=== PATIENT | female | born 1980 | race African-American/Black ===

== ENCOUNTER 2017-03-01 21:53 | Emergency (ER) | payer OTHER ==
[~2017-03-01] VITALS: Ht 172.7 cm; Wt 62.0 kg
[~2017-03-01 21:53] MED LIST: ACET-2178
[2017-03-01] MEDS ORDERED: KETOROLAC 30MG/ML VIAL IV STA (22:48)
[2017-03-01] MEDS ORDERED: ASPIRIN 81MG TABLET PO ONE (23:00)
[2017-03-01 23:35] LABS: BASOPHILS % 0.6 % (0.0-2.0); EOSINOPHILS % 2.7 % (0.0-5.0); HEMATOCRIT. 37.9 % (36.0-48.0); HEMOGLOBIN. 12.6 g/dL (12.0-16.0); LYMPHOCYTES % 44.5 % (20.0-50.0); MEAN CORPUSCULAR HEMOGLOBIN 30.9 pg (28.0-32.0); MEAN CORPUSCULAR VOLUME 93.3 fL (81.0-99.0); MEAN PLATELET VOLUME 8.4 fl (7.4-10.4); MONOCYTES % 9.5 % (2.0-8.0); NEUTROPHILS % 42.7 % (40.0-76.0); PLATELET 237 x1000/uL (130-400); RED BLOOD CELL COUNT 4.07 mill/uL (4.2-5.4); RED CELL DISTRIBUTION WIDTH 14.3 % (11.6-14.6)
[2017-03-01 23:43] LABS: CARBON DIOXIDE 26 mEq/L (21-32); CHLORIDE 111 mEq/L (98-107); ETHANOL BLOOD < 10 mg/dL; TROPONIN I < 0.02 ng/mL (0.00-0.04)
[2017-03-02 00:06] LABS: *AMPHETAMINES SCREEN URINE NEGATIVE (NEGATIVE); *BARBITURATES SCREEN URINE NEGATIVE (NEGATIVE); *BENZODIAZEPINES SCREEN URINE NEGATIVE (NEGATIVE); *COCAINE SCREEN URINE NEGATIVE (NEGATIVE); METHADONE URINE SCREEN NEGATIVE (NEGATIVE); OPIATES URINE SCREEN NEGATIVE (NEGATIVE); PHENCYCLIDINE URINE SCREEN NEGATIVE (NEGATIVE)
[2017-03-02 00:18] LABS: CANNABINOID URINE SCREEN PRESUMTIVE POSITIVE (NEGATIVE)
[2017-03-02] MEDS ORDERED: FAMOTIDINE 20MG/2ML VIAL IV STA (00:54)
[2017-03-02] MEDS ORDERED: MAGNESIUM/ALUMINUM HYDROXIDE/SIMETHICONE 30ML UDC PO STA (00:54)
[2017-03-02] MEDS ORDERED: ACETAMINOPHEN 325MG TABLET PO ONE (03:00)
[2017-03-02 04:18] VITALS: BP 149/81
== END 2017-03-02 04:22 | disposition home or self-care (01) ==
LOC: ER 22:10
DX: I10 Essential (primary) hypertension (principal); R07.89 Other chest pain; R51 Headache; I25.2 Old myocardial infarction; Z91.14 Patient's other noncompliance with medication regimen; Z98.890 Other specified postprocedural states
CPT/HCPCS: 36415; 70450; 71010; 80053; 80305; 81025; 83690; 83880; 84484; 85025; 85379; 93005; 96374; 96375; 99285; G0482; J1885; J3490

== ENCOUNTER 2017-04-15 20:06 | Emergency (ER) | payer OTHER ==
[~2017-04-15] VITALS: Ht 172.7 cm; Wt 63.0 kg
[2017-04-15] MEDS ORDERED: KETOROLAC 60MG/2ML VIAL IM ONE (22:30)
[2017-04-15 23:07] VITALS: BP 153/121
== END 2017-04-15 23:49 | disposition home or self-care (01) ==
LOC: ER 20:18
DX: R51 Headache (principal); I10 Essential (primary) hypertension; R07.89 Other chest pain; R06.02 Shortness of breath; F17.210 Nicotine dependence, cigarettes, uncomplicated; F12.90 Cannabis use, unspecified, uncomplicated
CPT/HCPCS: 81025; 93005; 96372; 99283; J1885; Z7610

== ENCOUNTER 2017-04-28 20:15 | Emergency (ER) | payer SELFPAY ==
[~2017-04-28] VITALS: Ht 172.7 cm; Wt 63.0 kg
[2017-04-28] MEDS ORDERED: MORPHINE SULFATE 4 MG/ML CPJ (NOT FOR IM USE) IV STA (22:25)
[2017-04-28] MEDS ORDERED: ONDANSETRON HCL 4MG/2ML VIAL IV STA (22:25)
[2017-04-28] MEDS ORDERED: LISINOPRIL 20MG TABLET PO ONE (22:30)
[2017-04-28] MEDS ORDERED: ASPIRIN 81MG TABLET PO ONE (22:30)
[2017-04-28 23:02] LABS: BASOPHILS % 0.7 % (0.0-2.0); EOSINOPHILS % 2.6 % (0.0-5.0); HEMATOCRIT. 34.8 % (36.0-48.0); HEMOGLOBIN. 11.4 g/dL (12.0-16.0); LYMPHOCYTES % 46.9 % (20.0-50.0); MEAN CORPUSCULAR HEMOGLOBIN 30.6 pg (28.0-32.0); MEAN CORPUSCULAR VOLUME 93.6 fL (81.0-99.0); MEAN PLATELET VOLUME 8.2 fl (7.4-10.4); MONOCYTES % 8.5 % (2.0-8.0); NEUTROPHILS % 41.3 % (40.0-76.0); PLATELET 190 x1000/uL (130-400); RED BLOOD CELL COUNT 3.71 mill/uL (4.2-5.4); RED CELL DISTRIBUTION WIDTH 13.6 % (11.6-14.6)
[2017-04-28 23:10] LABS: D-DIMER < 0.19 mg/L FEU (<0.50); HCG SCREEN NEGATIVE; INR 1.1; PROTHROMBIN TIME 10.9 sec (9.4-11.6)
[2017-04-28 23:15] LABS: CARBON DIOXIDE 25 mEq/L (21-32); CHLORIDE 110 mEq/L (98-107); ETHANOL BLOOD < 10 mg/dL
[2017-04-28 23:18] LABS: TROPONIN I < 0.02 ng/mL (0.00-0.04)
[2017-04-29 01:03] VITALS: BP 140/80
== END 2017-04-29 01:05 | disposition home or self-care (01) ==
LOC: ER 20:15
DX: R07.89 Other chest pain (principal); I16.0 Hypertensive urgency; R00.1 Bradycardia, unspecified; Z86.73 Personal history of transient ischemic attack (TIA), and cerebral infarction without residual deficits
CPT/HCPCS: 36415; 71010; 80053; 83690; 83880; 84484; 84703; 85025; 85379; 85610; 93005; 96374; 96375; 99285; G0482; J2270; J2405; Z7610

== ENCOUNTER 2017-06-15 17:22 | Emergency (ER) | payer OTHER ==
[~2017-06-15] VITALS: Ht 172.7 cm; Wt 59.0 kg
[2017-06-16] MEDS ORDERED: IBUPROFEN 600MG TABLET PO ONE (00:30)
[2017-06-16 03:08] VITALS: BP 125/88
== END 2017-06-16 03:09 | disposition home or self-care (01) ==
LOC: ER 19:07
DX: M94.0 Chondrocostal junction syndrome [Tietze] (principal); I10 Essential (primary) hypertension; Z86.73 Personal history of transient ischemic attack (TIA), and cerebral infarction without residual deficits
CPT/HCPCS: 71045; 81025; 93005; 99284; Z7610

== ENCOUNTER 2018-09-29 01:06 | Emergency (ER) | payer OTHER ==
[~2018-09-29] VITALS: Ht 172.7 cm; Wt 63.0 kg
[2018-09-29 04:09] LABS: BASOPHILS % 0.8 % (0.0-2.0); EOSINOPHILS % 1.7 % (0.0-5.0); HEMATOCRIT. 31.5 % (36.0-48.0); HEMOGLOBIN. 10.4 g/dL (12.0-16.0); LYMPHOCYTES % 39.7 % (20.0-50.0); MEAN CORPUSCULAR HEMOGLOBIN 30.8 pg (28.0-32.0); MEAN CORPUSCULAR VOLUME 93.6 fL (81.0-99.0); MEAN PLATELET VOLUME 7.9 fl (7.4-10.4); MONOCYTES % 9.3 % (2.0-8.0); NEUTROPHILS % 48.5 % (40.0-76.0); PLATELET 204 x1000/uL (130-400); RED BLOOD CELL COUNT 3.36 mill/uL (4.2-5.4); RED CELL DISTRIBUTION WIDTH 13.7 % (11.6-14.6)
[2018-09-29 04:15] LABS: CHLORIDE 111 mEq/L (98-107)
[2018-09-29 04:37] LABS: B-HCG QUANTITATIVE 8273 mIU/mL (<3)
[2018-09-29 05:12] LABS: CLARITY URINE CLEAR (CLEAR); COLOR URINE YELLOW (YELLOW); KETONES URINE TRACE (NEGATIVE); LEUKOCYTE ESTERASE URINE TRACE (NEGATIVE); NITRITE URINE NEGATIVE (NEGATIVE); OCCULT BLOOD URINE NEGATIVE (NEGATIVE); PROTEIN URINE NEGATIVE (NEGATIVE)
[2018-09-29 06:07] VITALS: BP 118/74
== END 2018-09-29 06:10 | disposition home or self-care (01) ==
LOC: ER 01:06
DX: O20.0 Threatened abortion (principal); O99.411 Diseases of the circulatory system complicating pregnancy, first trimester; I10 Essential (primary) hypertension; I25.2 Old myocardial infarction; O26.891 Other specified pregnancy related conditions, first trimester; Z86.73 Personal history of transient ischemic attack (TIA), and cerebral infarction without residual deficits; Z98.890 Other specified postprocedural states; Z79.899 Other long term (current) drug therapy; Z3A.01 Less than 8 weeks gestation of pregnancy
CPT/HCPCS: 36415; 76801; 76817; 80053; 81003; 81025; 84702; 85025; 86850; 86900; 86901; 99284; Z7610

== ENCOUNTER 2019-03-10 20:57 | Inpatient (IN) | payer SELFPAY ==
[~2019-03-10] VITALS: Ht 172.7 cm; Wt 61.8 kg
[~2019-03-10 20:57] MED LIST changes: -ACET-2178; +TOPUD
[2019-03-11] MEDS ORDERED: ASPIRIN 81MG TABLET PO ONE (01:30)
[2019-03-11] MEDS: NITROGLYCERIN 0.4MG TABLET SL SL PRN ×2 (01:39→01:50)
[2019-03-11 02:00] LABS: CHLORIDE 108 mEq/L (98-107)
[2019-03-11 02:02] LABS: HCG SCREEN NEGATIVE
[2019-03-11 02:09] LABS: BASOPHILS % 0.6 % (0.0-2.0); EOSINOPHILS % 1.7 % (0.0-5.0); HEMATOCRIT. 39.7 % (36.0-48.0); HEMOGLOBIN. 12.9 g/dL (12.0-16.0); LYMPHOCYTES % 37.4 % (20.0-50.0); MEAN CORPUSCULAR VOLUME 92.1 fL (81.0-99.0); NEUTROPHILS % 53.3 % (40.0-76.0); PLATELET 228 x1000/uL (130-400); RED BLOOD CELL COUNT 4.31 mill/uL (4.2-5.4); RED CELL DISTRIBUTION WIDTH 14.8 % (11.6-14.6)
[2019-03-11 02:14] LABS: D-DIMER 0.28 mg/L FEU (<0.50); PARTIAL THROMBOPLASTIN TIME 30.2 sec (23.4-31.0); PROTHROMBIN TIME 10.2 sec (9.6-11.0)
[2019-03-11] MEDS ORDERED: DOCUSATE SODIUM 100MG CAPSULE PO PRN (06:00)
[2019-03-11] MEDS ORDERED: DIPHENHYDRAMINE 50MG/ML VIAL IV PRN (06:00)
[2019-03-11] MEDS ORDERED: MORPHINE SULFATE 2 MG/ML CPJ (NOT FOR IM USE) IV PRN (06:00)
[2019-03-11] MEDS ORDERED: NA PHOS,M-B/NA PHOS,DI-BA ENEMA 118ML PR PRN (06:00)
[2019-03-11] MEDS ORDERED: ONDANSETRON HCL 4MG/2ML INJ IV PRN (06:00)
[2019-03-11] MEDS ORDERED: CLONIDINE 0.1MG TABLET PO PRN (06:00)
[2019-03-11] MEDS ORDERED: GUAIFENESIN 200MG/10ML SUGAR FREE UDC PO PRN (06:00)
[2019-03-11] MEDS ORDERED: MAGNESIUM/ALUMINUM HYDROXIDE/SIMETHICONE 30ML UDC PO PRN (06:00)
[2019-03-11] MEDS ORDERED: IPRATROPIUM/ALBUTEROL 0.5-3(2.5)MG/3ML NEB HHN PRN (06:00)
[2019-03-11] MEDS ORDERED: ACETAMINOPHEN 325MG TABLET PO PRN (06:00)
[2019-03-11] MEDS ORDERED: LORAZEPAM 2MG/ML CPJ IV PRN (06:00)
[2019-03-11] MEDS ORDERED: HYDRALAZINE 20MG/ML VIAL IV PRN (06:00)
[2019-03-11 06:30] LABS: CREATINE KINASE 53 IU/L (26-192)
[2019-03-11 06:31] LABS: CREATINE KINASE MB FRACTION < 1.0 ng/mL (0.5-3.6)
[2019-03-11 08:30] VITALS: BP 119/81
[2019-03-11 08:35] VITALS: BP 119/81
[2019-03-11] MEDS: ASPIRIN 81MG EC TABLET PO SCH (09:26)
[2019-03-11] MEDS: ENOXAPARIN 40MG/0.4ML SYR SUBCUT SCH (09:28)
[2019-03-11] MEDS ORDERED: LISI-604 MT (10:02)
[2019-03-11] MEDS: HYDROCODONE/ACETAMINOPHEN 10/325MG TABLET PO PRN (11:52)
[2019-03-11 12:00] VITALS: BP 105/57
[2019-03-11] MEDS: SODIUM CHLORIDE 0.9% INJ 3ML FLUSH IVF SCH ×2 (14:00→21:27)
[2019-03-11 16:00] VITALS: BP 107/62
[2019-03-11 17:54] LABS: CREATINE KINASE 49 IU/L (26-192)
[2019-03-11 17:55] LABS: CREATINE KINASE MB FRACTION < 1.0 ng/mL (0.5-3.6)
[2019-03-11 19:57] VITALS: BP 119/78
[2019-03-11] MEDS ORDERED: PNEUMOCOCCAL 23-VAL P-SAC VAC 0.5 ML IM ONE (20:00)
[2019-03-11] MEDS ORDERED: INFLUENZA VIRUS VACCINE(AFLURIA) 0.5ML SYR IM ONE (20:00)
[2019-03-11 22:46] LABS: *AMPHETAMINES SCREEN URINE NEGATIVE (NEGATIVE); *BARBITURATES SCREEN URINE NEGATIVE (NEGATIVE); *BENZODIAZEPINES SCREEN URINE NEGATIVE (NEGATIVE); *COCAINE SCREEN URINE NEGATIVE (NEGATIVE); METHADONE URINE SCREEN NEGATIVE (NEGATIVE)
[2019-03-11 22:47] LABS: CANNABINOID URINE SCREEN NEGATIVE (NEGATIVE); PHENCYCLIDINE URINE SCREEN NEGATIVE (NEGATIVE)
[2019-03-11 22:51] LABS: OPIATES URINE SCREEN PRESUMTIVE POSITIVE (NEGATIVE)
[2019-03-12 00:38] VITALS: BP 119/74
[2019-03-12 04:00] VITALS: BP 112/76
[2019-03-12] MEDS: SODIUM CHLORIDE 0.9% INJ 3ML FLUSH IVF SCH (05:20)
[2019-03-12 07:41] LABS: BASOPHILS % 0.5 % (0.0-2.0); EOSINOPHILS % 1.4 % (0.0-5.0); HEMATOCRIT. 34.2 % (36.0-48.0); HEMOGLOBIN. 11.3 g/dL (12.0-16.0); LYMPHOCYTES % 32.5 % (20.0-50.0); MEAN CORPUSCULAR HEMOGLOBIN 30.3 pg (28.0-32.0); MEAN CORPUSCULAR VOLUME 91.4 fL (81.0-99.0); MEAN PLATELET VOLUME 9.7 fl (7.4-10.4); MONOCYTES % 6.9 % (2.0-8.0); NEUTROPHILS % 58.7 % (40.0-76.0); PLATELET 214 x1000/uL (130-400); RED BLOOD CELL COUNT 3.74 mill/uL (4.2-5.4); RED CELL DISTRIBUTION WIDTH 14.3 % (11.6-14.6)
[2019-03-12 08:18] LABS: CHLORIDE 109 mEq/L (98-107)
[2019-03-12 08:31] LABS: HDL CHOLESTEROL 69 mg/dL (40-59)
[2019-03-12 08:32] LABS: LDL CHOLESTEROL 70 mg/dL (5-100); T4 FREE 0.99 ng/dL (0.76-1.46)
[2019-03-12 08:36] VITALS: BP 107/69
[2019-03-12] MEDS: ASPIRIN 81MG EC TABLET PO SCH (09:05)
[2019-03-12] MEDS: ENOXAPARIN 40MG/0.4ML SYR SUBCUT SCH (09:05)
[2019-03-12 11:55] VITALS: BP 123/77
[2019-03-12] MEDS: HYDROCODONE/ACETAMINOPHEN 10/325MG TABLET PO PRN (11:55)
[2019-03-12 15:23] VITALS: BP 120/83
== END 2019-03-12 16:50 | disposition home or self-care (01) | DRG 198 ==
LOC: ER 20:57 → 6WST 03-11 04:47 → ENRESERV 03-11 07:10
PROVIDERS: ADMIT Internal Medicine; ATTEND Internal Medicine
DX: R07.89 Other chest pain (principal); I25.2 Old myocardial infarction; F41.9 Anxiety disorder, unspecified; Z91.19 Patient's noncompliance with other medical treatment and regimen; I10 Essential (primary) hypertension; Z98.891 History of uterine scar from previous surgery
CPT/HCPCS: 36415; 71045; 80061; 80305; 82550; 82553; 83036; 83880; 84439; 84443; 84484; 84703; 85379; 90686; 90732; 93005; 93306; 99285; J1650

== ENCOUNTER 2019-03-31 00:46 | Emergency (ER) | payer SELFPAY ==
[~2019-03-31] VITALS: Ht 172.7 cm; Wt 63.0 kg
[2019-03-31 03:32] LABS: CLARITY URINE CLEAR (CLEAR); COLOR URINE YELLOW (YELLOW); KETONES URINE TRACE (NEGATIVE); LEUKOCYTE ESTERASE URINE TRACE (NEGATIVE); NITRITE URINE POSITIVE (NEGATIVE); OCCULT BLOOD URINE NEGATIVE (NEGATIVE); PROTEIN URINE NEGATIVE (NEGATIVE)
[2019-03-31] MEDS ORDERED: KETOROLAC 60MG/2ML VIAL IM STA (03:36)
[2019-03-31] MEDS ORDERED: CEFTRIAXONE SODIUM 1 G/VIAL IM ONE (05:00)
[2019-03-31] MEDS ORDERED: LIDOCAINE HCL/PF 1% 10 MG/ML 5ML VIAL IJ ONE (05:00)
[2019-03-31 05:32] VITALS: BP 120/80
== END 2019-03-31 05:40 | disposition home or self-care (01) ==
LOC: ER 00:46
DX: N39.0 Urinary tract infection, site not specified (principal)
CPT/HCPCS: 81003; 81025; 96372; 99283; J0696; J1885; J3490; Z7610

== ENCOUNTER 2020-05-03 13:51 | Emergency (ER) | payer MEDICAID ==
[~2020-05-03] VITALS: Ht 172.7 cm; Wt 63.6 kg
[2020-05-03 14:32] VITALS: BP 130/86
== END 2020-05-03 16:52 | disposition home or self-care (01) ==
LOC: ER 13:51
DX: U07.1 COVID-19 (principal); G93.3 Postviral and related fatigue syndromes; I10 Essential (primary) hypertension; Z98.890 Other specified postprocedural states; Z87.440 Personal history of urinary (tract) infections; Z71.89 Other specified counseling
CPT/HCPCS: 99281; 99283

== ENCOUNTER 2020-05-07 01:29 | Emergency (ER) | payer MEDICAID ==
[~2020-05-07] VITALS: Ht 172.7 cm; Wt 63.0 kg
[2020-05-07] MEDS ORDERED: MAGNESIUM/ALUMINUM HYDROXIDE/SIMETHICONE 30ML UDC PO STA (02:21)
[2020-05-07] MEDS ORDERED: SODIUM CHLORIDE 0.9% 1,000 ML IV ONE (02:30)
[2020-05-07] MEDS ORDERED: FAMOTIDINE 20MG/2ML VIAL IV NR (03:00)
[2020-05-07 04:55] LABS: BASOPHILS % 0.6 % (0.0-2.0); EOSINOPHILS % 1.3 % (0.0-5.0); HEMATOCRIT. 36.2 % (36.0-48.0); HEMOGLOBIN. 12.1 g/dL (12.0-16.0); MEAN CORPUSCULAR HEMOGLOBIN 30.6 pg (28.0-32.0); MEAN CORPUSCULAR VOLUME 91.8 fL (81.0-99.0); MEAN PLATELET VOLUME 8.8 fl (7.4-10.4); MONOCYTES % 7.3 % (2.0-8.0); NEUTROPHILS % 62.8 % (40.0-76.0); PLATELET 276 x1000/uL (130-400); RED BLOOD CELL COUNT 3.94 mill/uL (4.2-5.4); RED CELL DISTRIBUTION WIDTH 14.5 % (11.6-14.6)
[2020-05-07 05:04] LABS: CHLORIDE 110 mEq/L (98-107)
[2020-05-07 05:09] LABS: PROTHROMBIN TIME 10.2 sec (9.6-11.0)
[2020-05-07 05:18] LABS: HCG SCREEN NEGATIVE
[2020-05-07 05:44] VITALS: BP 131/80
== END 2020-05-07 05:52 | disposition home or self-care (01) ==
LOC: ER 01:29
DX: R10.13 Epigastric pain (principal); I10 Essential (primary) hypertension; R07.89 Other chest pain; Z98.890 Other specified postprocedural states
CPT/HCPCS: 36415; 71045; 80053; 83690; 84703; 85025; 85610; 93005; 96361; 96374; 99285; J3490; J7030

== ENCOUNTER 2020-10-19 19:42 | Emergency (ER) | payer MEDICAID ==
[~2020-10-19] VITALS: Ht 172.7 cm; Wt 66.0 kg
[2020-10-19 21:19] LABS: CLARITY URINE CLEAR (CLEAR); COLOR URINE YELLOW (YELLOW); KETONES URINE NEGATIVE (NEGATIVE); LEUKOCYTE ESTERASE URINE NEGATIVE (NEGATIVE); NITRITE URINE NEGATIVE (NEGATIVE); OCCULT BLOOD URINE NEGATIVE (NEGATIVE); PH URINE 6.5 (4.5-8.0); PROTEIN URINE NEGATIVE (NEGATIVE)
[2020-10-19 23:06] LABS: BASOPHILS % 0.5 % (0.0-2.0); EOSINOPHILS % 1.3 % (0.0-5.0); HEMOGLOBIN. 12.5 g/dL (12.0-16.0); LYMPHOCYTES % 36.5 % (20.0-50.0); MEAN CORPUSCULAR HEMOGLOBIN 30.6 pg (28.0-32.0); MEAN CORPUSCULAR VOLUME 93.2 fL (81.0-99.0); MEAN PLATELET VOLUME 8.3 fl (7.4-10.4); MONOCYTES % 8.1 % (2.0-8.0); NEUTROPHILS % 53.6 % (40.0-76.0); PLATELET 245 x1000/uL (130-400); RED BLOOD CELL COUNT 4.07 mill/uL (4.2-5.4); RED CELL DISTRIBUTION WIDTH 14.5 % (11.6-14.6)
[2020-10-19 23:11] LABS: CHLORIDE 110 mEq/L (98-107)
[2020-10-19 23:16] LABS: PROTHROMBIN TIME 10.5 sec (9.6-11.0)
[2020-10-19] MEDS ORDERED: KETOROLAC 30MG/ML VIAL IV STA (23:22)
[2020-10-19] MEDS ORDERED: SODIUM CHLORIDE 0.9% 1,000 ML IV ONE (23:30)
[2020-10-20] MEDS ORDERED: T3 PO (00:53)
[2020-10-20 01:40] VITALS: BP 138/90
== END 2020-10-20 01:46 | disposition home or self-care (01) ==
LOC: ER 19:42
DX: N83.209 Unspecified ovarian cyst, unspecified side (principal); I25.2 Old myocardial infarction; I10 Essential (primary) hypertension; Z98.890 Other specified postprocedural states
CPT/HCPCS: 36415; 76830; 76856; 80053; 81003; 81025; 83690; 85025; 85610; 96361; 96374; 99284; J1885; J7030

== ENCOUNTER 2020-11-29 18:13 | Emergency (ER) | payer MEDICAID ==
[~2020-11-29] VITALS: Ht 172.7 cm; Wt 65.0 kg
[~2020-11-29 18:13] MED LIST changes: +T3 PO; -TOPUD
[2020-11-29] MEDS ORDERED: CARSR60 PO (19:08)
[2020-11-29] MEDS ORDERED: ACETAMINOPHEN 325MG TABLET PO ONE (20:30)
[2020-11-29] MEDS ORDERED: KETOROLAC 60MG/2ML VIAL IM ONE (20:30)
[2020-11-29 21:23] VITALS: BP 140/80
[2020-11-29] MEDS ORDERED: ACET-2708 MT (21:26)
[2020-11-29] MEDS ORDERED: IBUP-2029 MT (21:26)
== END 2020-11-29 21:43 | disposition home or self-care (01) ==
LOC: ER 18:13
DX: S13.4XXA Sprain of ligaments of cervical spine, initial encounter (principal); S80.02XA Contusion of left knee, initial encounter; I10 Essential (primary) hypertension; V49.49XA Driver injured in collision with other motor vehicles in traffic accident, initial encounter; Y93.89 Activity, other specified; Y92.488 Other paved roadways as the place of occurrence of the external cause
CPT/HCPCS: 71045; 73560; 81025; 93005; 96372; 99284; J1885

== ENCOUNTER 2020-12-22 11:36 | Emergency (ER) | payer MEDICAID ==
[~2020-12-22] VITALS: Ht 172.7 cm; Wt 66.0 kg
[~2020-12-22 11:36] MED LIST changes: +ACET-2708 MT; +CARSR60 PO; +IBUP-2029 MT
[2020-12-22] MEDS ORDERED: ASPIRIN 81MG TABLET PO ONE (12:45)
[2020-12-22 13:20] LABS: BASOPHILS % 1.1 % (0.0-2.0); EOSINOPHILS % 1.4 % (0.0-5.0); HEMATOCRIT. 36.6 % (36.0-48.0); HEMOGLOBIN. 12.3 g/dL (12.0-16.0); LYMPHOCYTES % 25.4 % (20.0-50.0); MEAN CORPUSCULAR VOLUME 91.9 fL (81.0-99.0); MEAN PLATELET VOLUME 8.8 fl (7.4-10.4); MONOCYTES % 7.5 % (2.0-8.0); NEUTROPHILS % 64.6 % (40.0-76.0); PLATELET 234 x1000/uL (130-400); RED BLOOD CELL COUNT 3.98 mill/uL (4.2-5.4); RED CELL DISTRIBUTION WIDTH 13.9 % (11.6-14.6)
[2020-12-22 13:27] LABS: CHLORIDE 108 mEq/L (98-107)
[2020-12-22] MEDS ORDERED: LORAZEPAM 0.5MG TABLET PO NR (14:30)
[2020-12-22] MEDS ORDERED: ACETAMINOPHEN 325MG TABLET PO NR (14:30)
[2020-12-22 16:00] VITALS: BP 140/100
== END 2020-12-22 17:18 | disposition home or self-care (01) ==
LOC: ER 12:51
DX: R07.89 Other chest pain (principal); I10 Essential (primary) hypertension; I25.2 Old myocardial infarction
CPT/HCPCS: 36415; 71045; 80053; 83880; 84484; 85025; 93005; 93970; 99285; Z7610

== ENCOUNTER 2021-01-06 21:31 | Emergency (ER) | payer MEDICAID ==
[~2021-01-06] VITALS: Ht 172.7 cm; Wt 66.0 kg
[2021-01-06 21:50] VITALS: BP 173/109
[2021-01-07 02:19] LABS: CLARITY URINE CLEAR (CLEAR); COLOR URINE YELLOW (YELLOW); KETONES URINE TRACE (NEGATIVE); LEUKOCYTE ESTERASE URINE NEGATIVE (NEGATIVE); NITRITE URINE NEGATIVE (NEGATIVE); OCCULT BLOOD URINE NEGATIVE (NEGATIVE); PROTEIN URINE NEGATIVE (NEGATIVE); SPECIFIC GRAVITY URINE 1.019 (1.005-1.030)
[2021-01-07] MEDS ORDERED: IBUP-2029 MT (02:28)
== END 2021-01-07 02:45 | disposition home or self-care (01) ==
LOC: ER 21:31
DX: M54.2 Cervicalgia (principal); R35.0 Frequency of micturition; F41.9 Anxiety disorder, unspecified; I10 Essential (primary) hypertension; I25.2 Old myocardial infarction; Z98.890 Other specified postprocedural states; Z79.899 Other long term (current) drug therapy
CPT/HCPCS: 72040; 81003; 99284

== ENCOUNTER 2021-06-26 21:54 | Emergency (ER) | payer MEDICAID, OTHER ==
[~2021-06-26] VITALS: Ht 172.7 cm; Wt 66.0 kg
[2021-06-26] MEDS ORDERED: ASPIRIN 325MG EC TABLET PO ONE (22:45)
[2021-06-26 23:33] LABS: BASOPHILS % 0.9 % (0.0-2.0); EOSINOPHILS % 1.9 % (0.0-5.0); HEMATOCRIT. 35.3 % (36.0-48.0); HEMOGLOBIN. 11.3 g/dL (12.0-16.0); MEAN CORPUSCULAR HEMOGLOBIN 28.8 pg (28.0-32.0); MEAN CORPUSCULAR VOLUME 90.1 fL (81.0-99.0); MEAN PLATELET VOLUME 8.4 fl (7.4-10.4); MONOCYTES % 10.7 % (2.0-8.0); NEUTROPHILS % 50.5 % (40.0-76.0); PLATELET 202 x1000/uL (130-400); RED BLOOD CELL COUNT 3.92 mill/uL (4.2-5.4); RED CELL DISTRIBUTION WIDTH 14.4 % (11.6-14.6)
[2021-06-26 23:57] LABS: CHLORIDE 109 mEq/L (98-107)
[2021-06-27 03:02] VITALS: BP 113/68
== END 2021-06-27 04:00 | disposition home or self-care (01) ==
LOC: ER 21:54
DX: J06.9 Acute upper respiratory infection, unspecified (principal); Z20.822 Contact with and (suspected) exposure to COVID-19; D64.9 Anemia, unspecified; I25.2 Old myocardial infarction
CPT/HCPCS: 36415; 71045; 80053; 83880; 84484; 85025; 87426; 93005; 99285

== ENCOUNTER 2022-05-11 12:49 | Emergency (ER) | payer MEDICAID, OTHER ==
[~2022-05-11] VITALS: Ht 172.7 cm; Wt 71.0 kg
[2022-05-11 12:59] VITALS: BP 172/98
[2022-05-11] MEDS ORDERED: ACETAMINOPHEN 325MG TABLET PO STA (13:46)
[2022-05-11] MEDS ORDERED: LOSARTAN POTASSIUM 100 MG TABLET PO ONE (14:00)
[2022-05-11 14:04] LABS: BASOPHILS % 0.6 % (0.0-2.0); EOSINOPHILS % 0.9 % (0.0-5.0); HEMATOCRIT. 35.3 % (36.0-48.0); HEMOGLOBIN. 11.7 g/dL (12.0-16.0); LYMPHOCYTES % 16.5 % (20.0-50.0); MEAN CORPUSCULAR VOLUME 93.3 fL (81.0-99.0); MEAN PLATELET VOLUME 8.1 fl (7.4-10.4); MONOCYTES % 8.1 % (2.0-8.0); NEUTROPHILS % 73.9 % (40.0-76.0); PLATELET 214 x1000/uL (130-400); RED BLOOD CELL COUNT 3.78 mill/uL (4.2-5.4); RED CELL DISTRIBUTION WIDTH 14.2 % (11.6-14.6)
[2022-05-11] MEDS ORDERED: LOSARTAN POTASSIUM 100 MG TABLET PO SCH (14:15)
[2022-05-11 14:17] LABS: CHLORIDE 109 mEq/L (98-107)
[2022-05-11] MEDS ORDERED: TOPUD MT (16:08)
== END 2022-05-11 17:56 | disposition home or self-care (01) ==
LOC: ER 12:49
DX: J10.1 Influenza due to other identified influenza virus with other respiratory manifestations (principal); I10 Essential (primary) hypertension; Z20.822 Contact with and (suspected) exposure to COVID-19; I25.2 Old myocardial infarction
CPT/HCPCS: 36415; 71045; 80053; 83880; 84484; 85025; 87426; 87804; 93005; 99285

== ENCOUNTER 2022-10-08 01:34 | Emergency (ER) | payer MEDICAID ==
[~2022-10-08] VITALS: Ht 172.7 cm; Wt 67.5 kg
[~2022-10-08 01:34] MED LIST changes: +TOPUD MT
[2022-10-08 02:04] VITALS: BP 163/112
[2022-10-08] MEDS ORDERED: DEXAMETHASONE 10 MG/ML VIAL IV ONE (04:30)
[2022-10-08] MEDS ORDERED: TOPUD PO (04:30)
[2022-10-08] MEDS ORDERED: [UNRECOGNIZED DRUG - CODE] PO (04:30)
== END 2022-10-08 05:24 | disposition home or self-care (01) ==
LOC: ER 01:34
DX: J02.9 Acute pharyngitis, unspecified (principal); I10 Essential (primary) hypertension; Z98.890 Other specified postprocedural states
CPT/HCPCS: 81025; 87070; 87430; 96374; 99283; J1100; Z7610

== ENCOUNTER 2023-08-06 18:29 | Emergency (ER) | payer OTHER, MEDICAID ==
[~2023-08-06] VITALS: Ht 165.1 cm; Wt 65.0 kg
[~2023-08-06 18:29] MED LIST changes: +TOPUD PO; +[UNRECOGNIZED DRUG - CODE] PO
[2023-08-06 18:31] VITALS: PULSE 103
[2023-08-06 18:35] VITALS: BP 130/93; RESP 20; TEMP 98.5; O2SAT 100
[2023-08-06] MEDS ORDERED: NAPR-681 PO (19:41)
[2023-08-06] MEDS ORDERED: BO1 TP (19:41)
== END 2023-08-06 19:57 | disposition home or self-care (01) ==
LOC: ER 18:29
DX: S00.83XA Contusion of other part of head, initial encounter (principal); S20.219A Contusion of unspecified front wall of thorax, initial encounter; I10 Essential (primary) hypertension; Z98.890 Other specified postprocedural states; Y04.0XXA Assault by unarmed brawl or fight, initial encounter; Y93.89 Activity, other specified; Y92.89 Other specified places as the place of occurrence of the external cause; Y99.8 Other external cause status
CPT/HCPCS: 99282

== ENCOUNTER 2024-08-06 21:17 | Emergency (ER) | payer MEDICAID ==
[~2024-08-06] VITALS: Ht 172.7 cm; Wt 69.0 kg
[~2024-08-06 21:17] MED LIST changes: +BO1 TP; +NAPR-681 PO
[2024-08-06 21:21] VITALS: O2SAT 99
[2024-08-06] MEDS: HYDRALAZINE 20MG/ML VIAL IV ONE (22:11)
[2024-08-06 22:32] LABS: BASOPHILS % 0.2 % (0.0-2.0); EOSINOPHILS % 1.2 % (0.0-5.0); HEMATOCRIT. 37.9 % (36.0-48.0); HEMOGLOBIN. 12.3 g/dL (12.0-16.0); LYMPHOCYTES % 24.1 % (20.0-50.0); MEAN CORPUSCULAR HEMOGLOBIN 29.9 pg (28.0-32.0); MEAN CORPUSCULAR HGB CONC 32.5 g/dL (31.0-37.0); MEAN CORPUSCULAR VOLUME 91.9 fL (81.0-99.0); MEAN PLATELET VOLUME 8.7 fl (7.4-10.4); MONOCYTES % 8.6 % (2.0-8.0); NEUTROPHILS % 65.9 % (40.0-76.0); PLATELET 239 x1000/uL (130-400); RED BLOOD CELL COUNT 4.12 mill/uL (4.2-5.4); RED CELL DISTRIBUTION WIDTH 14.3 % (11.6-14.6); WHITE BLOOD COUNT 4.4 x1000/uL (4.5-11.0)
[2024-08-06 22:41] LABS: CARBON DIOXIDE 27 mEq/L (21-32); CHLORIDE 106 mEq/L (98-107); POTASSIUM 3.7 mEq/L (3.5-5.1); SODIUM 140 mEq/L (136-145)
[2024-08-06 22:42] LABS: CALCIUM 9.4 mg/dL (8.7-10.4)
[2024-08-06 22:46] LABS: CREATININE 0.9 mg/dL (0.6-1.0)
[2024-08-06 22:47] LABS: GLUCOSE 73 mg/dL (70-105); UREA NITROGEN BLOOD 12 mg/dL (9-23)
[2024-08-06 22:49] LABS: ALANINE AMINOTRANSFERASE 9 IU/L (10-49); ALBUMIN 4.5 g/dL (3.2-4.8); ASPARTATE AMINOTRANSFERASE 18 IU/L (<34); BILIRUBIN DIRECT 0.2 mg/dL (<=3.0); BILIRUBIN TOTAL 0.9 mg/dL (0.1-1.0); PROTEIN TOTAL 8.3 g/dL (6.0-8.3); TROPONIN I HIGH SENSITIVITY 6 ng/L (3.0-34)
[2024-08-06 22:57] LABS: HCG SCREEN NEGATIVE
[2024-08-06] MEDS: KETOROLAC 15MG/ML VIAL IV NR (23:23)
[2024-08-07 01:19] VITALS: BP 124/70; PULSE 75; RESP 16; TEMP 36.7; O2SAT 98
[2024-08-07] MEDS ORDERED: AMLO10TA80 MT (01:26)
[2024-08-07] MEDS ORDERED: PROT20 MT (01:26)
== END 2024-08-07 01:55 | disposition home or self-care (01) ==
LOC: ER 21:25
DX: R07.89 Other chest pain (principal); R10.13 Epigastric pain; I10 Essential (primary) hypertension; I25.2 Old myocardial infarction; Z98.890 Other specified postprocedural states; Z79.899 Other long term (current) drug therapy
CPT/HCPCS: 80076; 80048; 84703; 83690; 85025; 84484; 36415; 71045; 76705; 93005; 96374; 96375; 99285; J0360; J1885; Z7610

== ENCOUNTER 2024-09-02 19:56 | Emergency (ER) | payer MEDICAID ==
[~2024-09-02] VITALS: Ht 167.6 cm; Wt 68.0 kg
[~2024-09-02 19:56] MED LIST changes: +AMLO10TA80 MT; +PROT20 MT
[2024-09-02 20:04] VITALS: BP 145/94; TEMP 36.8; O2SAT 100
[2024-09-02 20:07] VITALS: PULSE 90; RESP 16; O2SAT 100
[2024-09-02 20:39] LABS: BASOPHILS % 0.4 % (0.0-2.0); HEMOGLOBIN. 11.5 g/dL (12.0-16.0); LYMPHOCYTES % 30.7 % (20.0-50.0); MEAN CORPUSCULAR HEMOGLOBIN 29.7 pg (28.0-32.0); MEAN CORPUSCULAR HGB CONC 31.9 g/dL (31.0-37.0); MEAN CORPUSCULAR VOLUME 93.1 fL (81.0-99.0); MEAN PLATELET VOLUME 8.7 fl (7.4-10.4); MONOCYTES % 10.1 % (2.0-8.0); NEUTROPHILS % 56.8 % (40.0-76.0); PLATELET 234 x1000/uL (130-400); RED BLOOD CELL COUNT 3.87 mill/uL (4.2-5.4); RED CELL DISTRIBUTION WIDTH 14.1 % (11.6-14.6); WHITE BLOOD COUNT 4.3 x1000/uL (4.5-11.0)
[2024-09-02 20:42] LABS: CHLORIDE 109 mEq/L (98-107); POTASSIUM 4.4 mEq/L (3.5-5.1); SODIUM 142 mEq/L (136-145)
[2024-09-02 20:43] LABS: CALCIUM 9.5 mg/dL (8.7-10.4); CARBON DIOXIDE 27 mEq/L (21-32)
[2024-09-02 20:48] LABS: CREATININE 0.9 mg/dL (0.6-1.0); GLUCOSE 78 mg/dL (70-105); UREA NITROGEN BLOOD 15 mg/dL (9-23)
[2024-09-02 20:49] LABS: TROPONIN I HIGH SENSITIVITY 10 ng/L (3.0-34)
[2024-09-02 23:26] LABS: TROPONIN I HIGH SENSITIVITY 9 ng/L (3.0-34)
== END 2024-09-03 00:04 | disposition home or self-care (01) ==
LOC: ER 19:56
DX: R07.89 Other chest pain (principal); F12.10 Cannabis abuse, uncomplicated; I10 Essential (primary) hypertension; Z79.899 Other long term (current) drug therapy; Z98.890 Other specified postprocedural states
CPT/HCPCS: 36415; 71045; 80048; 84484; 85025; 85379; 93005; 99285

== ENCOUNTER 2024-11-18 21:45 | Emergency (ER) | payer MEDICAID ==
[~2024-11-18] VITALS: Ht 172.7 cm; Wt 67.0 kg
[2024-11-18 21:50] VITALS: O2SAT 99
[2024-11-18] MEDS: ACETAMINOPHEN 500MG TABLET PO ONE (22:51)
[2024-11-18] MEDS: CYCLOBENZAPRINE 10MG TABLET PO ONE (22:51)
[2024-11-18] MEDS: DEXAMETHASONE 4MG/ML 1ML VIAL IV ONE (23:27)
[2024-11-18] MEDS ORDERED: AMOX-494 MT (23:51)
[2024-11-19 00:38] VITALS: BP 130/90; PULSE 64; RESP 18; TEMP 36.8; O2SAT 100
== END 2024-11-19 00:45 | disposition home or self-care (01) ==
LOC: ER 21:45
DX: J02.0 Streptococcal pharyngitis (principal); I10 Essential (primary) hypertension; Z79.899 Other long term (current) drug therapy; Z55.6 Problems related to health literacy
CPT/HCPCS: 81025; 87430; 96374; 99283; J1100; Z7610

== ENCOUNTER 2025-02-23 19:12 | Emergency (ER) | payer MEDICAID ==
[~2025-02-23] VITALS: Ht 172.7 cm; Wt 66.5 kg
[~2025-02-23 19:12] MED LIST changes: +AMOX-494 MT; +IBUP-1455 MT; -IBUP-2029 MT
[2025-02-23 19:14] VITALS: O2SAT 100
[2025-02-23 20:27] LABS: BASOPHILS % 0.5 % (0.0-2.0); EOSINOPHILS % 1.6 % (0.0-5.0); HEMATOCRIT. 36.2 % (36.0-48.0); HEMOGLOBIN. 11.5 g/dL (12.0-16.0); LYMPHOCYTES % 30.7 % (20.0-50.0); MEAN PLATELET VOLUME 8.7 fl (7.4-10.4); MONOCYTES % 8.3 % (2.0-8.0); NEUTROPHILS % 58.9 % (40.0-76.0); PLATELET 208 x1000/uL (130-400); RED BLOOD CELL COUNT 3.81 mill/uL (4.2-5.4); RED CELL DISTRIBUTION WIDTH 13.8 % (11.6-14.6)
[2025-02-23 20:40] LABS: CREATININE 0.8 mg/dL (0.6-1.0); TROPONIN I HIGH SENSITIVITY < 4 ng/L (3.0-34); UREA NITROGEN BLOOD 7 mg/dL (9-23)
[2025-02-23] MEDS: CEFTRIAXONE SODIUM 500MG VIAL IM ONE (23:08)
[2025-02-23] MEDS: DOXYCYCLINE HYCLATE 100MG CAPSULE PO ONE (23:08)
[2025-02-23 23:15] VITALS: BP 185/119; PULSE 60; RESP 16; TEMP 37.1; O2SAT 99
[2025-02-25 04:07] LABS: HSV TYPE 2 SPECIFIC AB IGG Non Reactive (Non Reactive)
== END 2025-02-23 23:17 | disposition home or self-care (01) ==
LOC: ER 19:12
DX: R07.89 Other chest pain (principal); F12.90 Cannabis use, unspecified, uncomplicated; I10 Essential (primary) hypertension; Z79.899 Other long term (current) drug therapy
CPT/HCPCS: 99285; 71045; 86592; 86695; 86696; 80048; 85025; 84484; 36415; 93005; 96372; J0696